=== PATIENT | female | born 1960 | race African-American/Black ===

== ENCOUNTER → 2016-05-05 | Day surgery (SDC) | payer MEDICARE ==
[2016-05-05 09:44] LABS: HCT 42.6 % (37.0-47.0); HGB 14.3 g/dl (12.5-16.0); MCH 28.9 pg (25.0-31.0); MCHC 33.6 g/dL (32.0-36.0); MCV 86.2 fL (78.0-100.0); MPV 9.3 fL (6.0-9.5); RBC 4.94 M/uL (4.20-5.40); RDW 13.7 % (11.5-14.0); WBC 6.5 K/uL (4.0-10.5)
[2016-05-05 10:05] LABS: ALBUMIN 4.5 g/dL (3.5-5.0); BILIRUBIN - TOTAL 0.7 mg/dL (0.1-1.0); CREATININE 0.7 mg/dL (0.5-1.0); POTASSIUM 3.5 mmol/L (3.5-5.1); TOTAL PROTEIN 7.5 g/dL (6.4-8.3)
== END | disposition home or self-care (01) ==
LOC: FAS 09:06
PROVIDERS: Surgery
DX: B07.8 Other viral warts (principal); G47.30 Sleep apnea, unspecified; E89.0 Postprocedural hypothyroidism; Z85.3 Personal history of malignant neoplasm of breast; Z79.899 Other long term (current) drug therapy; Z87.891 Personal history of nicotine dependence
CPT/HCPCS: 36415; 80053; 88305; J2704; J3010